=== PATIENT | male | born 1940 | race Caucasian/White ===

== ENCOUNTER 2016-08-03 09:21 | Inpatient (IN) | payer OTHER, MEDICARE ==
[~2016-08-03] VITALS: Ht 172.7 cm; Wt 90.7 kg
--- NOTE | 2016-08-03 09:28 | NUR ---
PT HAVING DIFFICULTY URINATING AND WAS TOLD BY HIS IF HE DIDN'T FEEL WELL TO GET TO THE HOSPITAL. PT STATES HE IS ON ABX FOR PACKING IN HIS NOSE PT STATES HE HAS NOT MOVED BOWELS SINCE MONDAY. PT HAS BPH
--- NOTE | 2016-08-03 09:36 | ED GI/GU/ABDOMINAL COMPLAINT ---
History of Present Illness General Chief Complaint: Abdominal Pain/Flank Pain Stated Complaint: ABD PAIN Source: patient, family Exam Limitations: no limitations Allergies Coded Allergies: No Known Allergies (08/03/16) Reconcile Medications Atorvastatin Calcium 10 MG TABLET 1 TAB PO 1700 HYPERLIPIDEMIA (Reported) Glipizide 10 MG TABLET 1 TAB PO BID DM (Reported) Metoprolol Tartrate 50 MG TABLET 1 TAB PO DAILY HEART (Reported) Pioglitazone HCl 15 MG TABLET 1 TAB PO DAILY DIABETES (Reported) Polyethylene Glycol 3350 (Miralax) 17 GRAM/DOSE POWDER 17 GM PO DAILY PRN CONSTIPATION Sennosides/Docusate Sodium (Senna Plus Tablet) 8.6 MG-50 MG TABLET 1 TAB PO BID PRN CONSTIPATION Tamsulosin HCl 0.4 MG CAP.ER.24H 1 CAP PO DAILY PROSTATE (Reported) Zolpidem Tartrate 10 MG TABLET 1 TAB PO QPMP PRN SLEEP (Reported) [Zyloprim] 200 MG PO DAILY GOUT Triage Note: PT HAVING DIFFICULTY URINATING AND WAS TOLD BY HIS DRTara IF HE DIDN'T FEEL WELL TO GET TO THE HOSPITAL. Triage Nurses Notes Reviewed? yes HPI: This patient is a 76-year-old male with a past medical history including CHF, benign prostatic hypertrophy, and diabetes who presented to the emergency department today sent in by his primary care physician for evaluation of multiple complaints. The patient reported that 3 or 4 weeks ago he had a cough productive of white sputum. His primary care physician got a chest x-ray which suggested congestive heart failure. He was started on Lasix. He had a nuclear stress test and an echocardiogram which were unremarkable. He reported that his lower extremity edema has significantly improved since that time and he no longer has to take the Lasix. He denied a cough currently. His resident doctor is Dr. Mejía. He also has a urologist who has been following his kidney function. He reported, "one of my kidney tests is low." He reported that he is having difficulty starting a stream when urinating. He denied any blood in the urine, burning, or urgency. He did report increased urinary frequency. The patient reported that last night he began having lower abdominal pain that starts on the left side of his lower abdomen and radiates across the right sided lower abdomen. He reported the pain comes and goes, gets up to a 6 out of 10, and feels a pressure. He feels that he is more bloated than normal. The patient denied any fevers, chills, chest pain, nausea, vomiting, or difficulty breathing. He reported intermittent lower back pain. Reported, "my doctor told me that if I wasn't feeling well and he is to come to the hospital to have blood work done and to possibly be admitted for my kidneys." (KENTRELL ASHLEY PA-C) Vital Signs & Intake/Output Vital Signs & Intake/Output Vital Signs Date Time Temp Pulse Resp B/P Pulse O2 O2 Flow FiO2 Ox Delivery Rate 08/05 09 80 130/70 08/05 09 80 130/70 08/05 0800 98.2 78 20 100/60 08/05 0700 98.2 78 20 100/60 93 Room Air 08/05 0600 98.2 78 20 100/60 08/04 2228 98.2 68 20 140/60 95 Room Air ED Intake and Output 08/05 0000 08/04 1200 Intake Total 2500 1600 Output Total 4400 4100 Balance -1900 -2500 Intake, IV 800 800 Intake, Oral 1700 800 Number 0 Bowel Movements Output, Urine 4400 4100 Past History Travel History Traveled to [place] past 21 day No Medical History Any Pertinent Medical History? see below for history Cardiovascular: CHF Renal: benign prost hyperplasia, RENAL FAILURE Endocrine: diabetes Surgical History Surgical History: non-contributory Psychosocial History What is your primary language Slovak Tobacco Use: Quit >30 days ago ETOH Use: occasional use Illicit Drug Use: denies illicit drug use Family History Hx Contributory? No (KENTRELL ASHLEY PA-C) Review of Systems Review of Systems Constitutional: Reports: no symptoms. EENTM: Reports: no symptoms. Respiratory: Reports: see HPI. Cardiovascular: Reports: see HPI. GI: Reports: see HPI. Genitourinary: Reports: see HPI. Musculoskeletal: Reports: see HPI. Skin: Reports: no symptoms. Neurological/Psychological: Reports: no symptoms. All Other Systems: Reviewed and Negative (KENTRELL ASHLEY PA-C) Physical Exam Physical Exam Gastrointestinal: normal bowel sounds, soft, MILD DISTENTION, NO ASCITES, DIFFUSELY TENDER TO DEEP PALPATION WITH NO REBOUND OR GUARDING. nEGATIVE Vicente SIGN. nEGATIVE rOVSING SIGN. nEGATIVE PSOAS SIGN. nO MASSES APPRECIATED Comments: Well-developed well-nourished person in no acute distress HEENT: Normal EENT exam, head normocephalic, moist mucous membranes Pupils equally round and reactive to light. Neck: Supple, no lymphadenopathy Back: Normal inspection. Normal gait Cardiovascular: Regular rate and rhythm with no murmurs, rubs, or gallops. No JVD or carotid bruits. Respiratory: Chest nontender. No respiratory distress. Breath sounds clear to auscultation bilaterally with no wheezes, rales, or rhonchi. No diminished breath sounds Extremity: Bilateral, nonpitting pedal edema. No calf tenderness to palpation. Normal and equal pulses. Capillary refill less than 2 seconds Neuro: Alert oriented x3, cranial nerves II through XII grossly intact. Skin: No appreciable rash on exposed skin, skin is warm and dry. Psych: Mood and affect is normal Core Measures ACS in differential dx? Yes Severe Sepsis Present: No Septic Shock Present: No (DION SHAFER,KENTRELL) Progress Differential Diagnosis: AAA, AMI, appendicitis, biliary colic, bowel obstruction , colon cancer, cholecystitis, diverticulitis, gastritis, hepatitis, ischemic bowel, inflamm bowel dis, pancreatitis, prostatitis, PUD/GERD, perforated viscous, pyelonephritis, ureterolithiasis, urinary retention, urethritis, UTI/ pyelo, ACUTE KIDNEY INJURY Diagnostic Imaging: Viewed by Me: CT Scan. Discussed w/RAD: CT Scan. Radiology Impression: PATIENT: MALCOM MONCADA PRESENT AGE: 76 PATIENT ACCOUNT NO: [id number] : 39 LOCATION: [facility] ORDERING PHYSICIAN: KENTRELL ASHLEY PA-C SERVICE DATE: 08/03/16 EXAM TYPE: CAT - CT ABD & PELVIS W/O IV CONTRAS EXAMINATION: CT ABDOMEN AND PELVIS WITHOUT CONTRAST CLINICAL INFORMATION: 76-year-old male presented with elevated amylase, lipase and abdominal pain. COMPARISON: None TECHNIQUE: Multidetector volumetric imaging was performed from the superior aspect of the liver through the pubic symphysis. Sagittal and coronal reformatted images were obtained on the technologist's workstation. DLP: 546.87 mGy-cm. FINDINGS: Evaluation is technically limited due to lack of intravenous contrast. LUNG BASES: The visualized lung bases are unremarkable. LIVER, GALLBLADDER, AND BILIARY TREE: The liver is normal in size, shape, and attenuation. No focal hepatic lesion or biliary ductal dilatation is present. The gallbladder is unremarkable with no evidence of radiopaque gallstones, gallbladder wall thickening, or obvious pericholecystic inflammatory changes. PANCREAS: Unremarkable. SPLEEN: Unremarkable. ADRENAL GLANDS: Unremarkable. KIDNEYS AND URETERS: Bilateral moderate to severe hydroureteronephrosis is present. There is a 2.2 cm cortical cyst present at mid lateral cortex of the right kidney. Nonspecific bilateral perinephric stranding is present. BLADDER: Markedly distended, seen extending above the level of the umbilicus without any definite intraluminal focal abnormality. GASTROINTESTINAL TRACT: The small and large bowel are unremarkable. The appendix is nonvisualized. ABDOMINAL WALL: No significant hernia is appreciated. LYMPH NODES: Normal. VASCULAR: Diffuse atherosclerotic changes are noted within the aorta and is branches. Mild distal abdominal aortic ectasia is present exiting approximately 2.9 x 2.7 cm. PELVIC VISCERA: The prostate is enlarged, measures approximately 5.6 x 5.0 cm. There is no free fluid and/or free air present. OSSEOUS STRUCTURES: Avascular necrosis is noted at the head of the right femur. Mild mid lumbar dextroscoliosis is noted. Significant facet joint arthritic changes are noted at lower lumbar spine. Moderate diffuse osteopenia is noted involving all the visualized bones. IMPRESSION: 1. Markedly distended urinary bladder with evidence of bilateral hydroureteronephrosis and mildly enlarged prostate. 2. No CT evidence of any acute pancreatitis, cholelithiasis or biliary obstruction is present. Evaluation is technically limited due to lack of IV contrast. 3. 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 Marked diffuse osteopenia. DICTATED BY: SHUKRI LONG MD DATE/ TIME DICTATED:08/03/161131 CUTTER HELPER:YISEL DATE/TIME TRANSCRIBED: 08/03/161131 CONFIDENTIAL, DO NOT COPY WITHOUT APPROPRIATE AUTHORIZATION. < Electronically signed in Other Vendor System> SIGNED BY: SHUKRI LONG MD 08/03/16 2184 Initial ED EKG: none Comments: 08/03/2016 9:57:11 PM: This is a patient of Dr. Muñoz. Will put out a page to him once his labs result. Last Cr was 4.5. Last GFR was 13. These results were drawn on August 01. (DION SHAFER,KENTRELL) Plan of Care: Orders Procedure Date/time Status Sanchez, Insertion/Removal/Asses 08/05 0819 Active Discharge Patient 08/05 UNK Active Nursing Misc 08/05 UNK Active Laboratory Tests 08/05/16 0650: Anion Gap 9, Estimated GFR 25 L, BUN/Creatinine Ratio 18.4 Departure Departure Disposition: STILL A PATIENT Condition: Stable Clinical Impression Primary Impression: Acute kidney injury Referrals: WANDA CHILDRESS,CHARLIE Santana (PCP/Family) Departure Forms: Customer Survey General Discharge Information Prescriptions: Current Visit Scripts Polyethylene Glycol 3350 (Miralax) 17 GM PO DAILY PRN CONSTIPATION #15 PAC [Zyloprim] 200 MG PO DAILY #30 TAB Sennosides/Docusate Sodium (Senna Plus Tablet) 1 TAB PO BID PRN CONSTIPATION #30 TAB Admission Note Spoke With: CHARLIE MUÑOZ MD Documentation of Exam: Documentation of any treatments & extenuating circumstances including Concerns Regarding Discharge (functional status, medication knowledge or non-compliance, living conditions, etc.) that warrant an admission rather than observation: [ This patient is a 76-year-old male with a past medical history including diabetes and benign prostatic hypertrophy and CHF who presented to the emergency department today for evaluation of abdominal pain and elevated functions. Creatinine today is 5.3. GFR is 11. This patient will be admitted for acute kidney injury to general medicine. He will need urology consultation, nephrology consultation, possible NPO status for elevated pancreatic enzymes, gastroenterology consultation, trend labs, and close monitoring. Premature discharge could prove medically harmful.] (KENTRELL ASHLEY PA-C) PA/CORRECTIONAL COUNSELOR Co-Sign Statement Statement: ED Attending supervision documentation- x I saw and evaluated the patient. I have also reviewed all the pertinent lab results and diagnostic results. I agree with the findings and the plan of care as documented in the PA's/CORRECTIONAL COUNSELOR's documentation. [] I have reviewed the ED Record and agree with the PA's/CORRECTIONAL COUNSELOR's documentation. [] Additions or exceptions (if any) to the PAs/CORRECTIONAL COUNSELOR's note and plan are summarized below: [] (NATIVIDAD ROSADO MD) as documented in the PA's/CORRECTIONAL COUNSELOR's documentation. [] I have reviewed the ED Record and agree with the PA's/CORRECTIONAL COUNSELOR's documentation. [] Additions or exceptions (if any) to the PAs/CORRECTIONAL COUNSELOR's note and plan are summarized below: [] (NATIVIDAD ROSADO MD)
--- NOTE | 2016-08-03 09:48 | NUR ---
EXAMINED BY MARY ASHLEY.
--- NOTE | 2016-08-03 10:15 | NUR ---
LAB DRAWN AND SENT.
--- NOTE | 2016-08-03 10:17 | NUR ---
FINGERSTICK GLUCOSE 219.
[2016-08-03 10:20] LABS: ABSOLUTE BASOPHIL COUNT 0 /CUMM (0.0-0.2); ABSOLUTE EOSINOPHIL COUNT 0.1 /CUMM (0.0-0.7); ABSOLUTE LYMPH COUNT 0.9 /CUMM (1.2-3.4); ABSOLUTE MONOCYTE COUNT 0.7 /CUMM (0.10-0.60); BASOPHIL % 0.2 % (0.0-2.0); EOSINOPHIL % 0.9 % (0-5); HEMATOCRIT 28.1 % (42-52); MEAN CORPUSCULAR HGB 21.8 PG (27.0-31.0); MEAN CORPUSCULAR VOLUME 68.3 FL (80.0-94.0); MEAN PLATELET VOLUME 8.9 FL (7.4-10.4); PLATELET COUNT 230 /CUMM (130-400); RBC DISTRIBUTION WIDTH 15.7 % (11.5-14.5); RED BLOOD CELL CT 4.11 /CUMM (4.70-6.10); WHITE BLOOD CELL COUNT 8.6 /CUMM (4.8-10.8)
[2016-08-03 10:22] LABS: GRANULOCYTE % 80.7 % (42.2-75.2)
[2016-08-03] MEDS ORDERED: LO-DOSE ASPIRIN81 MG PO (10:48)
[2016-08-03] MEDS ORDERED: AMOXICILLIN875 M1 PO (10:48)
[2016-08-03] MEDS ORDERED: POTASSIUM CHLO10 ME5 PO (10:49)
[2016-08-03] MEDS ORDERED: ALLOPURINOL300 M1 PO (10:49)
[2016-08-03] MEDS ORDERED: PIOGLITAZONE HC15 MG PO (10:49)
[2016-08-03] MEDS ORDERED: METOPROLOL TART50 M1 PO (10:49)
[2016-08-03] MEDS ORDERED: ZOLPIDEM TARTRA10 M1 PO (10:50)
[2016-08-03] MEDS ORDERED: TAMSULOSIN HCL0.4 M1 PO (10:50)
[2016-08-03] MEDS ORDERED: METFORMIN HCL1000 M1 PO (10:50)
[2016-08-03] MEDS ORDERED: GLIPIZIDE10 M2 PO (10:51)
[2016-08-03] MEDS ORDERED: ATORVASTATIN CA10 M1 PO (10:51)
--- NOTE | 2016-08-03 11:23 | NUR ---
TO CT SCAN.
--- NOTE | 2016-08-03 11:55 | CT SCAN REPORT ---
EXAMINATION: CT ABDOMEN AND PELVIS WITHOUT CONTRAST CLINICAL INFORMATION: 76-year-old male presented with elevated amylase, lipase and abdominal pain. COMPARISON: None TECHNIQUE: Multidetector volumetric imaging was performed from the superior aspect of the liver through the pubic symphysis. Sagittal and coronal reformatted images were obtained on the technologist's workstation. DLP: 546.87 mGy-cm. FINDINGS: Evaluation is technically limited due to lack of intravenous contrast. LUNG BASES: The visualized lung bases are unremarkable. LIVER, GALLBLADDER, AND BILIARY TREE: The liver is normal in size, shape, and attenuation. No focal hepatic lesion or biliary ductal dilatation is present. The gallbladder is unremarkable with no evidence of radiopaque gallstones, gallbladder wall thickening, or obvious pericholecystic inflammatory changes. PANCREAS: Unremarkable. SPLEEN: Unremarkable. ADRENAL GLANDS: Unremarkable. KIDNEYS AND URETERS: Bilateral moderate to severe hydroureteronephrosis is present. There is a 2.2 cm cortical cyst present at mid lateral cortex of the right kidney. Nonspecific bilateral perinephric stranding is present. BLADDER: Markedly distended, seen extending above the level of the umbilicus without any definite intraluminal focal abnormality. GASTROINTESTINAL TRACT: The small and large bowel are unremarkable. The appendix is nonvisualized. ABDOMINAL WALL: No significant hernia is appreciated. LYMPH NODES: Normal. VASCULAR: Diffuse atherosclerotic changes are noted within the aorta and is branches. Mild distal abdominal aortic ectasia is present exiting approximately 2.9 x 2.7 cm. PELVIC VISCERA: The prostate is enlarged, measures approximately 5.6 x 5.0 cm. There is no free fluid and/or free air present. OSSEOUS STRUCTURES: Avascular necrosis is noted at the head of the right femur. Mild mid lumbar dextroscoliosis is noted. Significant facet joint arthritic changes are noted at lower lumbar spine. Moderate diffuse osteopenia is noted involving all the visualized bones. IMPRESSION: 1. Markedly distended urinary bladder with evidence of bilateral hydroureteronephrosis and mildly enlarged prostate. 2. No CT evidence of any acute pancreatitis, cholelithiasis or biliary obstruction is present. Evaluation is technically limited due to lack of IV contrast. 3. 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 Marked diffuse osteopenia.
--- NOTE | 2016-08-03 13:16 | History & Physical ---
KWABENA JUNG MD 08/03/16 1312: General Information and HPI MD Statement: I have seen and personally examined MALCOM MONCADA and documented this H&P. The patient is a 76 year old M who presented with a patient stated chief complaint of [SENT BY HIS PCP FOR EVALUATION OF GENERALIZED ABD. PAIN AND WORSENING KIDNEY FUNCTION]. Source of Information: patient Exam Limitations: no limitations History of Present Illness: This is 76 year old male with past medical history of type 2 diabetes, CAD status post stenting in 1999, remote history of nephrolithiasis, BPH, presumed diastolic heart failure, osteoarthritis was sent in by his PCP for further evaluation of worsening generalized abdominal pain and kidney function on the lab. Patient had routine lab workup on 07/27/2016 which showed significantly worsening kidney function with creatinine of 3.5 (baseline cr. 1.0 in ). Patient had repeat lab yesterday which revealed progressively worsening kidney function with Cr. worsening to 4.5. Patient also started developing abdominal fullness and generalized abdominal pain since Monday night which over the period of time progress. Patient denies any urinary burning or dysuria and has unchanged urinary hesitancy and frequency which she attributes to his BPH. He also reports occasional chills but denies any fever. His last bowel movement was 2 days prior to admission. He denies any chest pain, shortness of breath, lightheadedness, nausea, vomiting, weakness. Allergies/Medications Allergies: Coded Allergies: No Known Allergies (08/03/16) Home Med list Allopurinol 300 MG TABLET 1 TAB PO DAILY GOUT (Reported) Amoxicillin 875 MG TABLET 1 TAB PO BID ANTIBIOTIC, INFECTION (Reported) Aspirin (Lo-Dose Aspirin EC) 81 MG TABLET.DR 2 TAB PO DAILY HEART HEALTH ( Reported) Atorvastatin Calcium 10 MG TABLET 1 TAB PO 1700 HYPERLIPIDEMIA (Reported) Glipizide 10 MG TABLET 1 TAB PO BID DM (Reported) Metformin HCl 1,000 MG TABLET 1 TAB PO BID DM (Reported) Metoprolol Tartrate 50 MG TABLET 1 TAB PO DAILY HEART (Reported) Pioglitazone HCl 15 MG TABLET 1 TAB PO DAILY DIABETES (Reported) Potassium Chloride 10 MEQ TAB.ER.PRT 1 TAB PO DAILY SUPPLEMENT (Reported) Tamsulosin HCl 0.4 MG CAP.ER.24H 1 CAP PO DAILY PROSTATE (Reported) Zolpidem Tartrate 10 MG TABLET 1 TAB PO QPMP PRN SLEEP (Reported) Compliance With Home Meds: FAIR Past History Travel History Traveled to [place] past 21 day No Medical History Cardiovascular: CAD, CHF Renal: benign prost hyperplasia, nephrolithiasis, RENAL FAILURE Endocrine: diabetes Surgical History Surgical History: non-contributory Past Family/Social History Family History Relations & Conditions if any FATHER FH: CAD (coronary artery disease) Psychosocial History ETOH Use: occasional use Illicit Drug Use: denies illicit drug use Functional Ability ADLs Independent: dressing, eating, toileting, bathing. Ambulation: independent IADLs Independent: shopping, housework, finances, food prep, telephone, transportation , medication admin. Review of Systems Review of Systems Constitutional: Reports: chills. Denies: fever, weakness. EENTM: Denies: visual changes. Cardiovascular: Denies: chest pain, edema, palpitations. Respiratory: Denies: cough, short of breath, wheezing. GI: Reports: abdominal pain, constipation. Denies: diarrhea, nausea, vomiting. Genitourinary: Reports: frequency, hesitation. Denies: dysuria. Musculoskeletal: Denies: back pain. Skin: Denies: rash. Neurological/Psychological: Denies: confusion. Exam & Diagnostic Data Last 24 Hrs of Vital Signs/I&O Vital Signs Date Time Temp Pulse Resp B/P Pulse O2 O2 Flow FiO2 Ox Delivery Rate 08/03 1345 97.9 80 18 173/89 97 08/03 1344 97.8 74 20 173/79 08/03 1344 97.8 74 20 173/79 08/03 1139 97.8 68 18 181/83 97 Room Air 08/03 0931 96.6 74 18 163/89 98 Room Air Intake & Output 08/03 1600 08/03 0800 08/03 0000 Intake Total 10 Output Total Balance 10 Intake, IV 10 Intake, Oral 0 Patient 185 lb Weight Physical Exam General Appearance Alert, Oriented X3, Cooperative, No Acute Distress Skin No Rashes HEENT Atraumatic, PERRLA, EOMI, Mucous Membr. moist/pink Neck Supple, No JVD Lymphatic Cervical nl Cardiovascular Regular Rate, Normal S1, Normal S2, No Murmurs Lungs Clear to Auscultation, Normal Air Movement Abdomen Normal Bowel Sounds, Soft, No Tenderness Neurological Normal Speech, Normal Tone, Sensation Intact Extremities 1-2 + pitting pedal edema B/L Vascular Normal Pulses, Pulses Symmetrical Last 24 Hrs of Labs/Serg: Laboratory Tests 08/03/16 1025: Lactic Acid 0.9 08/03/16 1011: Anion Gap 11, Estimated GFR 11 L, BUN/Creatinine Ratio 17.4, Glucose 212 H, Calcium 9.6, Total Bilirubin 0.9, Direct Bilirubin 0.7 H, AST 20, ALT 22, Alkaline Phosphatase 51, Wdp-J-Ossbbwzgnpd Pept 1380 H, Total Protein 6.7, Albumin 3.7, Globulin 3.0, Albumin/Globulin Ratio 1.2, Amylase 115 H, Lipase 718 H, CBC w Diff NO MAN DIFF REQ, RBC 4.11 L, MCV 68.3 L, MCH 21.8 L, RDW 15.7 H, MPV 8.9, Gran % 80.7 H, Lymphocytes % 10.7 L, Monocytes % 7.5, Eosinophils % 0.9, Basophils % 0.2, Absolute Granulocytes 7.0 H, Absolute Lymphocytes 0.9 L, Absolute Monocytes 0.7 H, Absolute Eosinophils 0.1, Absolute Basophils 0, PUBS MCHC 32.0 L 08/03/16 1003: Urine Color YEL, Urine Clarity CLEAR, Urine pH 6.0, Ur Specific Bim 1.010, Urine Protein NEG, Urine Ketones NEG, Urine Nitrite NEG, Urine Bilirubin NEG, Urine Urobilinogen 0.2, Ur Leukocyte Esterase SMALL H, Ur Microscopic SEDIMENT EXAMINED, Urine RBC 1-3, Urine WBC 5-10 H, Urine Hemoglobin TRACE-INTACT H, Urine Glucose NEG 08/03/16 1003: Ref Lab Test Result Pending, Ur Random Creatinine 61.9, Ur Random Sodium 37, Ur Random Potassium 25.9, Fraction Sodium Excret 2.3 H Microbiology 08/03 1424 URINE ROUT: Urine Culture - ORD 08/03 1003 URINE ROUT: Urine Culture - RECD Diagnostic Data Other Results CT abdomen and pelvis without IV contrast: 1. Markedly distended urinary bladder with evidence of bilateral hydroureteronephrosis and mildly enlarged prostate. 2. No CT evidence of any acute pancreatitis, cholelithiasis or biliary obstruction is present. Evaluation is technically limited due to lack of IV contrast. 3. 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 Marked diffuse osteopenia. Assessment/Plan Assessment: This is 76 year old male with past medical history of type 2 diabetes, CAD status post stenting in 1999, remote history of nephrolithiasis, BPH, presumed diastolic heart failure, osteoarthritis was sent in by his PCP for further evaluation of worsening generalized abdominal pain and kidney function on the lab. Patient noted to have acute worsening of kidney function from creatinine being 1 in February [address] abdomen pelvis revealed markedly distended urinary bladder with evidence of bilateral hydroureteronephrosis and mildly enlarged prostate without any evidence of acute pancreatitis/ cholelithiasis or biliary obstruction. 1. Acute kidney injury - Likely secondary to urinary obstruction due to enlarged prostate - Stat Sanchez placement in ER , received 1600 cc urine output, watch for post- obstructive diuresis - Strict SALENA's - Urology consult - aggressive IV hydration - No urologic uintervention as per Urology Dr. Parnell required now - UA noted with 5-10 WBC and small leukocyte esterase no evidence of urinary burning/pain or leukocytosis. Follow-up urine culture. Watched off antibiotics - CT scan revealed markedly distended bladder with evidence of bilateral hydronephrosis and mildly enlarged prostate - will monitor kidney function and if needed will involve nephrology 2. Mildly elevated lipase - Unknown etiology - Patient denies any binge alcohol use, and CT scan did not reveal any evidence of gallstone disease or obstruction - Monitor lipase, LFT - as per patient's daughter, he drinks more than what he is reporting, will do CIWA 3. CAD status post stenting - Continue aspirin, beta omid and statin 4. BPH - Continue Flomax 5. Type 2 diabetes - Hold oral hypoglycemic agent - Start Novolog sliding scale - Accu-Cheks 6. DVT prophylaxis - Subcutaneous heparin 7. Full code case discussed with Dr. moore and Dr. Parnell over phone. As Ranked By This Provider Problem List: 1. Acute kidney injury 2. CAD (coronary artery disease) 3. HTN (hypertension) Core Measures/Miscellaneous Acute Coronary Syndrome ACS Diagnosis: No Cerebrovascular Accident CVA/TIA Diagnosis: No Congestive Heart Failure CHF Diagnosis: No Venous Thromboembolism VTE Risk Factors: Age > 40 No [facility] VTE prophylaxis d/t: No contraindications No VTE Pharm Prophylaxis d/t: No contraindications VTE Diagnosis: No VTE Type: NONE VTE Confirmed by (Test): NONE Severe Sepsis Severe Sepsis Present: No Septic Shock Septic Shock Present: No Miscellaneous Documentation Attending Case Discussed With: Dr. Moore Primary Care Physician: FARENS MD,ADONIS. Patient sees these Specialists Dr. Mejía cardiology Dr. Mae ENT Dr. Rosa urology Level of Patient Care: General Medicine Consults Needed: Consulting Specialty: Urology Consulting Physician: Dr. Parnell Reason for Consult: oobstructive uropathy Resident Review Statement Resident Statement: examined this patient, discussed with engineering intern, agreed with engineering intern, discussed with family, reviewed EMR data (avail), reviewed images, amended to note Other Findings: see HPI MEL CHILDRESS,[facility] 08/04/16 0848: Attending MD Review Statement Attending Statement Attending MD Statement: examined this patient, discuss w/resident/PA/UPHOLSTERER ASSEMBLY LINE, agreed w/resident/PA/UPHOLSTERER ASSEMBLY LINE, discussed with family, discussed with nursing
--- NOTE | 2016-08-03 13:27 | NUR ---
PT HAS BED ASSIGNMENT 230-2. RN NOTIFIED.
--- NOTE | 2016-08-03 13:44 | NUR ---
PT MEDICATED DOCUMENTED IN [facility]
--- NOTE | 2016-08-03 14:25 | NUR ---
REPORT TO FLOOR (JEFFREY BALL).
--- NOTE | 2016-08-03 15:06 | NUR ---
WATSON CATHETER INSERTED, DRAINED 1600 ML CLEAR YELLOW URINE.
--- NOTE | 2016-08-03 16:17 | NUR ---
ADMISSION NOTE- PT ARRIVED TO FLOOR AT THIS TIME. A/O X 3, ON RA, INDEP. STATES HEADACHE PAIN REQUESTING TYLENOL. SKIN INTACT, +1 EDEMA TO BLE. REFUSING ALPS AND HEPARIN. ABD SOFTLY DISTENDED. LBM 07/31 PER PT. +BS, +FLATUS. WATSON DRAINING CLEAR YELLOW URINE, 400 CC IN BAG AT THIS TIME. ORIENTED TO ROOM AND USE OF CALL [facility]. APPROACHED OUTSIDE OF ROOM BY DAUGHTER STATING THAT "HE IS AN ALCOHOLIC. I'D BE SURPRISED IF HE ONLY DRINKS ON THE WEEKENDS LIKE HE SAYS. WE ALL WOULD BE SURPRISED. IN FACT, HE ADMITTED TO THE DOCTOR THAT HE DRINKS EVERY DAY". CALL PLACED TO KWABENA JUNG AT THIS TIME TO MAKE AWARE. CIWA SCALE IN PLACE. PER KWABENA PT OK TO EAT AND DRINK. CYSTO PROCEDURE ON HOLD. ICE CHIPS AND WATER PROVIDED TO PT. WILL CONTINUE TO MONITOR.
[2016-08-03 16:21] VITALS: BP 154/60
--- NOTE | 2016-08-03 17:38 | NUR ---
PRINT DEVELOPER AUTOMATIC MADE AWARE THAT PT IS REFUSING ALPS/ HEPARIN SC. ALSO, PT REFUSED ORDERED MIRALAX AT THIS TIME. "ILL TAKE IT IN THE MORNING, I WANT IT TO TAKE ITS NATURAL COURSE". WILL CONTINUE TO MONITOR.
[2016-08-03 21:54] VITALS: BP 154/70
[2016-08-04] VITALS: BP 154/70
[2016-08-04 06:00] VITALS: BP 160/70
[2016-08-04 07:19] VITALS: BP 160/70
[2016-08-04 08:00] VITALS: BP 160/70
[2016-08-04 08:01] LABS: ABSOLUTE BASOPHIL COUNT 0 /CUMM (0.0-0.2); ABSOLUTE EOSINOPHIL COUNT 0.2 /CUMM (0.0-0.7); ABSOLUTE GRANULOCYTE CT 3.9 /CUMM (1.4-6.5); ABSOLUTE LYMPH COUNT 1.5 /CUMM (1.2-3.4); ABSOLUTE MONOCYTE COUNT 0.6 /CUMM (0.10-0.60); BASOPHIL % 0.7 % (0.0-2.0); EOSINOPHIL % 3.5 % (0-5); GRANULOCYTE % 62.2 % (42.2-75.2); HEMATOCRIT 27.2 % (42-52); MEAN CORPUSCULAR HGB 21.7 PG (27.0-31.0); MEAN CORPUSCULAR HGB CONC 31.8 G/DL (33.0-37.0); MEAN CORPUSCULAR VOLUME 68.4 FL (80.0-94.0); MEAN PLATELET VOLUME 9.3 FL (7.4-10.4); PLATELET COUNT 213 /CUMM (130-400); RBC DISTRIBUTION WIDTH 15.7 % (11.5-14.5); RED BLOOD CELL CT 3.98 /CUMM (4.70-6.10); WHITE BLOOD CELL COUNT 6.2 /CUMM (4.8-10.8)
--- NOTE | 2016-08-04 08:46 | Admission Certification ---
Admission Certification Certification Statement - As attending physician, I certify that at the time of - admission, based on clinical presentation, severity of - symptoms, need for further diagnostic testing and - therapeutic interventions, and risk of adverse outcomes - without in-hospital treatment, in my clinical assessment, - this patient requires an acute hospital stay for a minimum - of two nights or longer. I have also considered psychsocial - factors such as support system, advanced age, financial - issues, cognitive issues, and failed out-patient treatments, - past re-admission history, safety of patient, and lack of - compliance as applicable. Specific rationale supporting this admission is: Acute kidney injury, renal failure
--- NOTE | 2016-08-04 08:48 | PN- Att Addend ---
Attending Addendum Attending Brief Note Patient reports improved symptoms General Appearance: Alert, No Acute Distress Skin: Grossly normal HEENT: PEERLA Neck: Supple, No JVD Cardiovascular: Regular Rate, Normal S1, Normal S2, No Murmurs Lungs: Clear to Auscultation, Normal Air Movement Abdomen: Normal Bowel Sounds, Soft, No Tenderness Neurological: Normal Speech, Strength at 5/5 X4 Ext, Cranial Nerves 3-12 NL, Reflexes 2+ Extremities: No Clubbing, No Cyanosis, No Edema Vascular: Normal Pulses Assessment X line 76-year-old with history of diabetes, coronary artery disease, BPH presenting with worsening kidney function and abdominal discomfort. CAT scan suggested significant bladder distention and bilateral hydronephrosis. Sanchez was placed and he is tired used about 8 L in 24 hours and his kidney function is improving. Prior to admission he had a nasal packing for epistaxis that has resolved and he is continued on the antibiotic. Plan Continue Augmentin Continue IV hydration Monitor kidney function daily Continue other home medications Alps for DVT prophylaxis Current Medications Sig/Manohar Start time Last Medication Dose Route Stop Time Status Admin Acetaminophen 650 MG Q6P PRN 08/03 1615 AC 08/03 PO 1614 Allopurinol 200 MG DAILY 08/04 1000 AC PO Amoxicillin/ 500 MG Q12 08/03 1530 AC 08/03 Clavulanate Potassium PO 2049 Aspirin Buffered 162 MG DAILY 08/04 1000 CAN PO Atorvastatin Calcium 10 MG 1700 08/03 1700 AC PO Dextrose/Sodium 1,000 ML Q20H 08/03 1400 DC 08/03 Chloride IV 1505 Heparin Sodium 5,000 UNIT Q8 08/03 1604 DC (Porcine) SC Heparin Sodium 5,000 UNIT Q8 08/03 1400 CAN (Porcine) SC Insulin Aspart 0 TIDAC 08/03 1700 AC 08/03 SC 1713 Insulin Human Regular 0 Q6 08/03 1402 DC SC Metoprolol Tartrate 0 .STK-MED ONE 08/03 1340 DC PO Metoprolol Tartrate 50 MG DAILY 08/03 1306 AC 08/03 PO 1344 Oxycodone/ 1 TAB Q6P PRN 08/03 1615 AC Acetaminophen PO Polyethylene Glycol 17 GM DAILY 08/03 1626 AC PO Senna/Docusate Sodium 1 TAB BID 08/03 2200 AC 08/03 PO 2049 Sodium Chloride 1,000 ML Q6H 08/03 1545 AC 08/03 IV 0 Tamsulosin HCl 0.4 MG DAILY 08/03 1306 AC 08/03 PO 1344 Zolpidem Tartrate 10 MG AT BEDTIME NEED.. 08/03 1315 08/03 PO 2253 Laboratory Tests 08/04 08/03 08/03 0645 1850 1246 Chemistry Sodium (137 - 145 mmol/L) 145 141 Potassium (3.5 - 5.1 mmol/L) 3.8 4.7 Chloride (98 - 107 mmol/L) 106 102 Carbon Dioxide (22 - 30 mmol/L) 23 25 Anion Gap (5 - 16) 17 H 13 BUN (9 - 20 mg/dL) 70 H 86 H Creatinine (0.7 - 1.2 mg/dL) 3.8 H 4.7 H Estimated GFR (>60 ml/min) 16 L 12 L BUN/Creatinine Ratio (7 - 25 %) 18.4 18.3 Lactic Acid Cancelled Hematology CBC w Diff NO MAN DIFF REQ WBC (4.8 - 10.8 /CUMM) 6.2 RBC (4.70 - 6.10 /CUMM) 3.98 L Hgb (14.0 - 18.0 G/DL) 8.6 L Hct (42 - 52 %) 27.2 L MCV (80.0 - 94.0 FL) 68.4 L MCH (27.0 - 31.0 PG) 21.7 L RDW (11.5 - 14.5 %) 15.7 H Plt Count (130 - 400 /CUMM) 213 MPV (7.4 - 10.4 FL) 9.3 Gran % (42.2 - 75.2 %) 62.2 Lymphocytes % (20.5 - 51.1 %) 23.4 Monocytes % (1.7 - 9.3 %) 10.2 H Eosinophils % (0 - 5 %) 3.5 Basophils % (0.0 - 2.0 %) 0.7 Absolute Granulocytes (1.4 - 6.5 /CUMM) 3.9 Absolute Lymphocytes (1.2 - 3.4 /CUMM) 1.5 Absolute Monocytes (0.10 - 0.60 /CUMM) 0.6 Absolute Eosinophils (0.0 - 0.7 /CUMM) 0.2 Absolute Basophils (0.0 - 0.2 /CUMM) 0 PUBS MCHC (33.0 - 37.0 G/DL) 31.8 L 08/03 08/03 1025 1011 Chemistry Sodium (137 - 145 mmol/L) 137 Potassium (3.5 - 5.1 mmol/L) 4.7 Chloride (98 - 107 mmol/L) 102 Carbon Dioxide (22 - 30 mmol/L) 24 Anion Gap (5 - 16) 11 BUN (9 - 20 mg/dL) 92 H Creatinine (0.7 - 1.2 mg/dL) 5.3 *H Estimated GFR (>60 ml/min) 11 L BUN/Creatinine Ratio (7 - 25 %) 17.4 Glucose (65 - 99 mg/dL) 212 H Lactic Acid (0.7 - 2.1 mmol/L) 0.9 Calcium (8.4 - 10.2 mg/dL) 9.6 Total Bilirubin (0.2 - 1.3 mg/dL) 0.9 Direct Bilirubin (< 0.4 mg/dL) 0.7 H AST (17 - 59 U/L) 20 ALT (21 - 72 U/L) 22 Alkaline Phosphatase (< 127 U/L) 51 Urd-H-Eyknrfybvls Pept (<125 pg/mL) 1380 H Total Protein (6.3 - 8.2 g/dL) 6.7 Albumin (3.5 - 5.0 g/dL) 3.7 Globulin (1.9 - 4.2 gm/dL) 3.0 Albumin/Globulin Ratio (1.1 - 2.2 %) 1.2 Amylase (30 - 110 U/L) 115 H Lipase (23 - 300 U/L) 718 H Hematology CBC w Diff NO MAN DIFF REQ WBC (4.8 - 10.8 /CUMM) 8.6 RBC (4.70 - 6.10 /CUMM) 4.11 L Hgb (14.0 - 18.0 G/DL) 9.0 L Hct (42 - 52 %) 28.1 L MCV (80.0 - 94.0 FL) 68.3 L MCH (27.0 - 31.0 PG) 21.8 L RDW (11.5 - 14.5 %) 15.7 H Plt Count (130 - 400 /CUMM) 230 MPV (7.4 - 10.4 FL) 8.9 Gran % (42.2 - 75.2 %) 80.7 H Lymphocytes % (20.5 - 51.1 %) 10.7 L Monocytes % (1.7 - 9.3 %) 7.5 Eosinophils % (0 - 5 %) 0.9 Basophils % (0.0 - 2.0 %) 0.2 Absolute Granulocytes (1.4 - 6.5 /CUMM) 7.0 H Absolute Lymphocytes (1.2 - 3.4 /CUMM) 0.9 L Absolute Monocytes (0.10 - 0.60 /CUMM) 0.7 H Absolute Eosinophils (0.0 - 0.7 /CUMM) 0.1 Absolute Basophils (0.0 - 0.2 /CUMM) 0 PUBS MCHC (33.0 - 37.0 G/DL) 32.0 L 08/03 08/03 1003 1003 Miscellaneous Ref Lab Test Result Pending Urines Urine Color (YEL,AMB,STR) YEL Urine Clarity (CLEAR) CLEAR Urine pH (5.0 - 8.0) 6.0 Ur Specific [employer] (1.001 - 1.035) 1.010 Urine Protein (NEG,<30 MG/DL) NEG Urine Ketones (NEG) NEG Urine Nitrite (NEG) NEG Urine Bilirubin (NEG) NEG Urine Urobilinogen (0.1 - 1.0 EU/dl) 0.2 Ur Leukocyte Esterase (NEG) SMALL H Ur Microscopic SEDIMENT EXAMINED Urine RBC (0 - 5 /HPF) 1-3 Urine WBC (0 - 2 /HPF) 5-10 H Urine Hemoglobin (NEG) TRACE-INTACT H Ur Random Creatinine (mg/dL) 61.9 Ur Random Sodium (30 - 90 mmol/L) 37 Ur Random Potassium (mmol/L) 25.9 Fraction Sodium Excret (<1% %) 2.3 H Urine Glucose (N MG/DL) NEG Vital Signs Date Time Temp Pulse Resp B/P Pulse O2 O2 Flow FiO2 Ox Delivery Rate 08/04 0719 98.7 74 20 160/70 94 Room Air 08/04 0000 97.6 71 20 154/70 08/03 2154 97.6 71 20 154/70 96 Room Air 08/03 1621 97.5 73 20 154/60 95 Room Air 08/03 1459 84 18 174/84 08/03 1345 97.9 80 18 173/89 97 08/03 1344 97.8 74 20 173/79 08/03 1344 97.8 74 20 173/79 08/03 1139 97.8 68 18 181/83 97 Room Air 08/03 0931 96.6 74 18 163/89 98 Room Air
--- NOTE | 2016-08-04 09:15 | PN- Housestaff ---
Subjective Follow-up For: Acute kidney injury secondary to obstructive uropathy Complaints: unable to sleep well Subjective: Patient is comfortably sitting in bed. Denies any fever, chills, abdominal pain , nausea, vomiting or dizziness. He feels significantly better after getting Mtz catheter and relieving his urinary obstruction. He is requesting to get his nasal packing removed from his left nostril which was placed by ENT physician 3 days prior to admission for epistaxis. Review of Systems Constitutional: Reports: see HPI. Objective Last 24 Hrs of Vital Signs/I&O Vital Signs Date Time Temp Pulse Resp B/P Pulse O2 O2 Flow FiO2 Ox Delivery Rate 08/04 0719 98.7 74 20 160/70 94 Room Air 08/04 0000 97.6 71 20 154/70 08/03 2154 97.6 71 20 154/70 96 Room Air 08/03 1621 97.5 73 20 154/60 95 Room Air 08/03 1459 84 18 174/84 08/03 1345 97.9 80 18 173/89 97 08/03 1344 97.8 74 20 173/79 08/03 1344 97.8 74 20 173/79 08/03 1139 97.8 68 18 181/83 97 Room Air 08/03 0931 96.6 74 18 163/89 98 Room Air Intake & Output 08/04 1600 08/04 0800 08/04 0000 Intake Total Output Total 4100 2500 Balance -4100 -2500 Output, Urine 4100 2500 Physical Exam General Appearance: Alert, Oriented X3, Cooperative, No Acute Distress Skin: No Rashes HEENT: Atraumatic, PERRLA, EOMI, Mucous Membr. moist/pink Neck: Supple, No JVD Lymphatic: Cervical nl Cardiovascular: Normal S1, Normal S2, No Murmurs Lungs: Clear to Auscultation, Normal Air Movement Abdomen: Normal Bowel Sounds, Soft, No Tenderness Neurological: Normal Speech, Normal Tone, Sensation Intact Extremities: No Edema, Normal Pulses Vascular: Pulses Symmetrical Current Medications: Current Medications Sig/Manohar Start time Last Medication Dose Route Stop Time Status Admin Acetaminophen 650 MG Q6P PRN 08/03 1615 AC 08/03 PO 1614 Allopurinol 200 MG DAILY 08/04 1000 AC PO Amoxicillin/ 500 MG Q12 08/03 1530 AC 08/03 Clavulanate Potassium PO 204 Aspirin Buffered 162 MG DAILY 08/04 1000 CAN PO Atorvastatin Calcium 10 MG 1700 08/03 1700 AC PO Dextrose/Sodium 1,000 ML Q20H 08/03 1400 DC 08/03 Chloride IV 1505 Heparin Sodium 5,000 UNIT Q8 08/03 1604 DC (Porcine) SC Heparin Sodium 5,000 UNIT Q8 08/03 1400 CAN (Porcine) SC Insulin Aspart 0 TIDAC 08/03 1700 AC 08/03 SC 1713 Insulin Human Regular 0 Q6 08/03 1402 DC SC Metoprolol Tartrate 0 .STK-MED ONE 08/03 1340 DC PO Metoprolol Tartrate 50 MG DAILY 08/03 1306 AC 08/03 PO 1344 Oxycodone/ 1 TAB Q6P PRN 08/03 1615 AC Acetaminophen PO Polyethylene Glycol 17 GM DAILY 08/03 1626 AC PO Senna/Docusate Sodium 1 TAB BID 08/03 2200 AC 08/03 PO 2049 Sodium Chloride 1,000 ML Q6H 08/03 1545 AC 08/03 IV 2050 Tamsulosin HCl 0.4 MG DAILY 08/03 1306 AC 08/03 PO 1344 Zolpidem Tartrate 10 MG AT BEDTIME NEED.. 08/03 1315 AC 08/03 PO 2253 Last 24 Hrs of Lab/Serg Results Last 24 Hrs of Labs/Mics: Laboratory Tests 08/04/16 0645: Anion Gap 17 H, Estimated GFR 16 L, BUN/Creatinine Ratio 18.4, CBC w Diff NO MAN DIFF REQ, RBC 3.98 L, MCV 68.4 L, MCH 21.7 L, RDW 15.7 H, MPV 9.3, Gran % 62.2, Lymphocytes % 23.4, Monocytes % 10.2 H, Eosinophils % 3.5, Basophils % 0.7, Absolute Granulocytes 3.9, Absolute Lymphocytes 1.5, Absolute Monocytes 0.6 , Absolute Eosinophils 0.2, Absolute Basophils 0, PUBS MCHC 31.8 L 08/03/16 1850: Anion Gap 13, Estimated GFR 12 L, BUN/Creatinine Ratio 18.3 08/03/16 1246: Lactic Acid Cancelled 08/03/16 1025: Lactic Acid 0.9 08/03/16 1011: Anion Gap 11, Estimated GFR 11 L, BUN/Creatinine Ratio 17.4, Glucose 212 H, Calcium 9.6, Total Bilirubin 0.9, Direct Bilirubin 0.7 H, AST 20, ALT 22, Alkaline Phosphatase 51, Pfh-W-Rzwchguhndn Pept 1380 H, Total Protein 6.7, Albumin 3.7, Globulin 3.0, Albumin/Globulin Ratio 1.2, Amylase 115 H, Lipase 718 H, CBC w Diff NO MAN DIFF REQ, RBC 4.11 L, MCV 68.3 L, MCH 21.8 L, RDW 15.7 H, MPV 8.9, Gran % 80.7 H, Lymphocytes % 10.7 L, Monocytes % 7.5, Eosinophils % 0.9, Basophils % 0.2, Absolute Granulocytes 7.0 H, Absolute Lymphocytes 0.9 L, Absolute Monocytes 0.7 H, Absolute Eosinophils 0.1, Absolute Basophils 0, PUBS MCHC 32.0 L 08/03/16 1003: Urine Color YEL, Urine Clarity CLEAR, Urine pH 6.0, Ur Specific [place] 1.010, Urine Protein NEG, Urine Ketones NEG, Urine Nitrite NEG, Urine Bilirubin NEG, Urine Urobilinogen 0.2, Ur Leukocyte Esterase SMALL H, Ur Microscopic SEDIMENT EXAMINED, Urine RBC 1-3, Urine WBC 5-10 H, Urine Hemoglobin TRACE-INTACT H, Urine Glucose NEG 08/03/16 1003: Ref Lab Test Result Pending, Ur Random Creatinine 61.9, Ur Random Sodium 37, Ur Random Potassium 25.9, Fraction Sodium Excret 2.3 H Microbiology 08/03 1534 URINE ROUT: Urine Culture - RECD 08/03 1003 URINE ROUT: Urine Culture - RECD Orders Fingersticks (last 24 hrs): [id number] EKG Findings: NSR, rate 80, borderline first-degree AV block, left axis deviation, no acute ST -T changes Lines/Diet/Fluids Fluids/Infusions: normal saline 100 mL per hour Catheters/Tubes: mtz Mtz Still Needed? Yes Assessment/Plan Assessment: This is 76 year old male with past medical history of type 2 diabetes, CAD status post stenting in 1999, remote history of nephrolithiasis, BPH, presumed diastolic heart failure, osteoarthritis was sent in by his PCP for further evaluation of worsening generalized abdominal pain and kidney function on the lab. Patient noted to have acute worsening of kidney function from creatinine being 1 in February [address] abdomen pelvis revealed markedly distended urinary bladder with evidence of bilateral hydroureteronephrosis and mildly enlarged prostate without any evidence of acute pancreatitis/ cholelithiasis or biliary obstruction. Catheter was placed in ER and 1600 mL of urine noted. Patient had total of 8 L urine output in last 24 hours 1. Acute kidney injury secondary to obstructive uropathy due to an enlarged prostate - Improving - Continue Mtz, noted hematuria which was expected after a significant bladder distention which was decompressed with Mtz - Strict SALENA's - As per urology patient needs Mtz on discharge and has to follow-up with his primary urologist Dr. Avila as outpatient - Continue IV hydration, change to half normal saline at 100 mL per hour - No urologic uintervention as per Urology Dr. Parnell required now - UA noted with 5-10 WBC and small leukocyte esterase no evidence of urinary burning/pain or leukocytosis. Follow-up urine culture. Watched off antibiotics - CT scan revealed markedly distended bladder with evidence of bilateral hydronephrosis and mildly enlarged prostate -Kidney function is significantly improving with creatinine of 3.8 today, will repeat BUN and creatinine in afternoon - Expected post obstructive diuresis, will maintain fluid status 2. Mildly elevated lipase - Unknown etiology, will repeat LFT tomorrow - Patient denies any binge alcohol use, and CT scan did not reveal any evidence of gallstone disease or obstruction - as per patient's daughter, he drinks more than what he is reporting, will do CIWA, so far CIWA has been 0 3. CAD status post stenting - Continue beta omid and statin 4. Recent episode of epistaxis - Patient was evaluated by his ENT Dr. Mae and anterior nasal packing was placed after cauterizing to bleeding vessel - Nasal packing removed today without any significant bleeding - Will avoid aspirin and anticoagulation for now due to recent episode of epistaxis and hematuria 4. BPH - Continue Flomax 5. Type 2 diabetes - Hold oral hypoglycemic agent - Start Novolog sliding scale - Accu-Cheks and noted This is 76 year old male with past medical history of type 2 diabetes, CAD status post stenting in 1999, remote history of nephrolithiasis, BPH, presumed diastolic heart failure, osteoarthritis was sent in by his PCP for further evaluation of worsening generalized abdominal pain and kidney function on the lab. Patient noted to have acute worsening of kidney function from creatinine being 1 in February [address] abdomen pelvis revealed markedly distended urinary bladder with evidence of bilateral hydroureteronephrosis and mildly enlarged prostate without any evidence of acute pancreatitis/cholelithiasis or biliary obstruction. 1. Acute kidney injury - Likely secondary to urinary obstruction due to enlarged prostate - Stat Mtz placement in ER , received 1600 cc urine output, watch for post- obstructive diuresis - Strict SALENA's - Urology consult - aggressive IV hydration - No urologic uintervention as per Urology Dr. Parnell required now - UA noted with 5-10 WBC and small leukocyte esterase no evidence of urinary burning/pain or leukocytosis. Follow-up urine culture. Watched off antibiotics - CT scan revealed markedly distended bladder with evidence of bilateral hydronephrosis and mildly enlarged prostate - will monitor kidney function and if needed will involve nephrology 2. Mildly elevated lipase - Unknown etiology - Patient denies any binge alcohol use, and CT scan did not reveal any evidence of gallstone disease or obstruction - Monitor lipase, LFT - as per patient's daughter, he drinks more than what he is reporting, will do CIWA 3. CAD status post stenting - Continue aspirin, beta omid and statin 4. BPH - Continue Flomax 5. Type 2 diabetes - Hold oral hypoglycemic agent - Start Novolog sliding scale - Accu-Cheks 6. DVT prophylaxis - Subcutaneous heparin 7. Full code case discussed with Dr. moore and Dr. Parnell over phone. That the This is 76 year old male with past medical history of type 2 diabetes, CAD status post stenting in 1999, remote history of nephrolithiasis, BPH, presumed diastolic heart failure, osteoarthritis was sent in by his PCP for further evaluation of worsening generalized abdominal pain and kidney function on the lab. Patient noted to have acute worsening of kidney function from creatinine being 1 in February [address] abdomen pelvis revealed markedly distended urinary bladder with evidence of bilateral hydroureteronephrosis and mildly enlarged prostate without any evidence of acute pancreatitis/cholelithiasis or biliary obstruction. 1. Acute kidney injury - Likely secondary to urinary obstruction due to enlarged prostate - Stat Mtz placement in ER , received 1600 cc urine output, watch for post- obstructive diuresis - Strict SALENA's - Urology consult - aggressive IV hydration - No urologic uintervention as per Urology Dr. Parnell required now - UA noted with 5-10 WBC and small leukocyte esterase no evidence of urinary burning/pain or leukocytosis. Follow-up urine culture. Watched off antibiotics - CT scan revealed markedly distended bladder with evidence of bilateral hydronephrosis and mildly enlarged prostate - will monitor kidney function and if needed will involve nephrology 2. Mildly elevated lipase - Unknown etiology - Patient denies any binge alcohol use, and CT scan did not reveal any evidence of gallstone disease or obstruction - Monitor lipase, LFT - as per patient's daughter, he drinks more than what he is reporting, will do CIWA 3. CAD status post stenting - Continue aspirin, beta omid and statin 4. BPH - Continue Flomax 5. Type 2 diabetes - Hold oral hypoglycemic agent - Start Novolog sliding scale - Accu-Cheks as noted 122/158/114/75 6. DVT prophylaxis -Mechanical due to recent episode of epistaxis and hematuria 7. Full code Problem List: 1. Acute kidney injury 2. CAD (coronary artery disease) 3. HTN (hypertension) Pain Ratin Pain Location: none Pain Goal: Pain 4 or less Pain Plan: tylenol Tomorrow's Labs & Rationales: bep DVT/Prophylaxis: mechanical Consulting Request: Consulting Specialty: Urology Consulting Physician: Dr. Parnell Reason for Consult: oobstructive uropathy
[2016-08-04 14:53] VITALS: BP 142/84; BP 148/76; BP 96/54
--- NOTE | 2016-08-04 16:54 | NUR ---
CALLED INTO ROOM AT THIS TIME BY PT C/O BLADDER/ LOWER ABD PRESSURE/PAIN. WATSON CONTINUES TO DRAIN LIGHT PINK URINE. NO CLOTS VISIBLE. BLADDER SCANNED FOR 0-12 ML. +BS +FLATUS. STATING HE FEELS NAUSEOUS AND DOESNT WANT TO EAT AT THIS TIME. CALL PLACED TO FASHION ADVISER AWAITING RETURN CALL.
[2016-08-04 22:28] VITALS: BP 140/60
[2016-08-05 06:00] VITALS: BP 100/60
[2016-08-05 07:00] VITALS: BP 100/60
--- NOTE | 2016-08-05 07:39 | PN- Housestaff ---
Subjective Follow-up For: AK I secondary to obstructive uropathy Complaints: no complaints Subjective: Patient is comfortably sitting in bed. Denies any abdominal pain, nausea, vomiting, chest pain, dizziness, lightheadedness, palpitation, shortness of breath. He still have pinkish hematuria noted in his Sanchez. Review of Systems Constitutional: Reports: see HPI. Objective Last 24 Hrs of Vital Signs/I&O Vital Signs Date Time Temp Pulse Resp B/P Pulse O2 O2 Flow FiO2 Ox Delivery Rate 08/05 926 80 130/70 08/05 0927 80 130/70 08/05 08 98.2 78 20 100/60 08/05 0700 98.2 78 20 100/60 93 Room Air 08/05 0600 98.2 78 20 100/60 08/04 2228 98.2 68 20 140/60 95 Room Air 08/04 1453 98.2 73 20 148/76 97 Intake & Output 08/05 1600 08/05 0800 08/05 0000 Intake Total 0 700 Output Total 2450 1400 Balance -2450 -700 Intake, IV 0 Intake, Oral 0 700 Number 0 Bowel Movements Output, Urine 2450 1400 Physical Exam General Appearance: Alert, Oriented X3, Cooperative, No Acute Distress Skin: No Rashes HEENT: Atraumatic, PERRLA, EOMI, Mucous Membr. moist/pink Neck: Supple, No JVD Cardiovascular: Normal S1, Normal S2, No Murmurs Lungs: Clear to Auscultation, Normal Air Movement Abdomen: Normal Bowel Sounds, Soft, No Tenderness Neurological: Normal Speech, Normal Tone, Sensation Intact Extremities: No Edema Vascular: Normal Pulses, Pulses Symmetrical Current Medications: Current Medications Sig/Manohar Start time Last Medication Dose Route Stop Time Status Admin Acetaminophen 650 MG Q6P PRN 08/03 1615 AC 08/03 PO 1614 Allopurinol 200 MG DAILY 08/04 1000 AC 08/05 PO 0927 Amoxicillin/ 500 MG Q12 08/03 1530 AC 08/05 Clavulanate Potassium PO 0926 Atorvastatin Calcium 10 MG 1700 08/03 1700 AC 08/04 PO 1602 Bisacodyl 10 MG ONCE ONE 08/05 0830 DC 08/05 WV 08/05 0831 0928 Bisacodyl 10 MG ONCE ONE 08/04 1730 DC WV 08/04 1731 Insulin Aspart 0 TIDAC 08/03 1700 AC 08/03 SC 1713 Metoprolol Tartrate 50 MG DAILY 08/03 1306 AC 08/05 PO 0927 Ondansetron HCl 4 MG ONCE ONE 08/04 1730 DC 08/04 IV 08/04 1731 1744 Oxycodone/ 1 TAB Q6P PRN 08/03 1615 AC Acetaminophen PO Patient Medication 1 ED .STK-MED ONE 08/04 1346 DC Teaching ED 08/04 1347 Polyethylene Glycol 17 GM DAILY 08/03 1626 AC 08/05 PO 1052 Senna/Docusate Sodium 1 TAB BID 08/03 2200 AC 08/05 PO 0928 Sodium Chloride 1,000 ML Q10H 08/04 0915 DC 08/04 IV 08/04 1914 0925 Tamsulosin HCl 0.4 MG DAILY 08/03 1306 AC 08/05 PO 0927 Zolpidem Tartrate 10 MG AT BEDTIME NEED.. 08/03 1315 AC 08/04 PO 2233 Last 24 Hrs of Lab/Serg Results Last 24 Hrs of Labs/Mics: Laboratory Tests 08/05/16 0650: Anion Gap 9, Estimated GFR 25 L, BUN/Creatinine Ratio 18.4 08/04/16 1530: Anion Gap 12, Estimated GFR 20 L, BUN/Creatinine Ratio 20.7 Orders Fingersticks (last 24 hrs): Between 152 100 Assessment/Plan Assessment: This is 76 year old male with past medical history of type 2 diabetes, CAD status post stenting in 1999, remote history of nephrolithiasis, BPH, presumed diastolic heart failure, osteoarthritis was sent in by his PCP for further evaluation of worsening generalized abdominal pain and kidney function on the lab. Patient noted to have acute worsening of kidney function from creatinine being 1 in February [address] abdomen pelvis revealed markedly distended urinary bladder with evidence of bilateral hydroureteronephrosis and mildly enlarged prostate without any evidence of acute pancreatitis/ cholelithiasis or biliary obstruction. Catheter was placed in ER and 1600 mL of urine noted. Patient had total of 8 L urine output in last 24 hours 1. Acute kidney injury secondary to obstructive uropathy due to an enlarged prostate - Improving creatinine today 2.5 - Continue Sanchez, noted hematuria which was expected after a significant bladder distention which was decompressed with Sanchez - Strict SALENA's - As per urology patient needs Sanchez on discharge and has to follow-up with his primary urologist Dr. Avila as outpatient -IV hydration stop - No urologic uintervention as per Urology Dr. Parnell required now - UA noted with 5-10 WBC and small leukocyte esterase no evidence of urinary burning/pain or leukocytosis. Follow-up urine culture. Watched off antibiotics - CT scan revealed markedly distended bladder with evidence of bilateral hydronephrosis and mildly enlarged prostate -Kidney function is significantly improving with creatinine of 2.5 today, will repeat BUN and creatinine in afternoon - Expected post obstructive diuresis, will maintain fluid status 2. Mildly elevated lipase - Unknown etiology, will repeat LFT tomorrow - Patient denies any binge alcohol use, and CT scan did not reveal any evidence of gallstone disease or obstruction - as per patient's daughter, he drinks more than what he is reporting, will do CIWA, so far CIWA has been 0 3. CAD status post stenting - Continue beta omid and statin 4. Recent episode of epistaxis - Patient was evaluated by his ENT Dr. Mae and anterior nasal packing was placed after cauterizing to bleeding vessel - Nasal packing removed today without any significant bleeding - Will avoid aspirin and anticoagulation for now due to recent episode of epistaxis and hematuria - We'll stop his antibiotic 5. BPH - Continue Flomax 6. Type 2 diabetes - Hold oral hypoglycemic agent - Start Novolog sliding scale - Accu-Cheks well controlled 7. DVT prophylaxis -Mechanical 8. Full code Patient asked to follow-up with his urologist Dr. Avila on [facility] 08/09/2016 at 940am. Patient was also recommended to follow-up with his ENT physician Dr. Mae for recent episode of epistaxis. Patient was given prescription to get BMP and CBCs checked on 08/08/2016 prior to seeing his primary care Dr. Dr. Elkins on 08/09/2016. Patient asked to stop taking metformin until his kidney function improves. Problem List: 1. Acute kidney injury 2. CAD (coronary artery disease) 3. HTN (hypertension) Pain Ratin Pain Location: none Pain Goal: Pain 4 or less Pain Plan: tylenol Tomorrow's Labs & Rationales: none DVT/Prophylaxis: mechanical Consulting Request: Consulting Specialty: Urology Consulting Physician: Dr. Parnell Reason for Consult: oobstructive uropathy
[2016-08-05 08:00] VITALS: BP 100/60
--- NOTE | 2016-08-05 08:45 | Patient Discharge Instructions ---
Discharge Instructions General Discharge Information You were seen/treated for: ACUTE RENAL FAILURE DUE TO URINARY OBSTRUCTRION PRESUMABLY DUE TO BPH Watch for these problems: HEMATURIA, WORSENING RENAL FAILURE, FLANK PAIN, Special Instructions: Please follow up with Dr. Mathis on [place] 08/09/16. Please get BMP, CBC checked on 08/08/16. Please follow up with urology Dr. Avila on 08/09/16 at 940am. Continue mtz catheter until evaluated by urologist. Diet Recommended Diet: Diabetic Activity Additional ACTIVITY Info: as tolerated Acute Coronary Syndrome Inclusion Criteria At DC or during hospital stay patient has or had the following: ACS DIAGNOSIS No Discharge Core Measures Meds if any: Prescribed or Continued at Discharge Meds if any: NOT Prescribed or Continued at Discharge Congestive Heart Failure Inclusion Criteria At DC or during hospital stay patient has or had the following: CHF DIAGNOSIS No Discharge Core Measures Meds if any: Prescribed or Continued at Discharge Meds if any: NOT Prescribed or Continued at Discharge Cerebrovascular accident Inclusion Criteria At DC or during hospital stay patient has or had the following: CVA/TIA Diagnosis No Discharge Core Measures Meds if any: Prescribed or Continued at Discharge Meds if any: NOT Prescribed or Continued at Discharge Venous thromboembolism Inclusion Criteria VTE Diagnosis No VTE Type NONE VTE Confirmed by (Test) NONE Discharge Core Measures - Per Current guidelines, there needs to be overlap - treatment for the first 5 days of Warfarin therapy. - If discharged on Warfarin prior to 5 days of - overlap therapy, the patient will need to be - assessed for post discharge needs including - *Post discharge parental anticoagulation - *Warfarin and/or parental anticoagulation education - *Follow up date to check INR post discharge At least 5 days overlap therapy as Inpatient No Meds if any: Prescribed or Continued at Discharge Note: Overlap Therapy is Warfarin and Anticoagulant Meds if any: NOT Prescribed or Continued at Discharge
[2016-08-05 09:27] VITALS: BP 130/70
--- NOTE | 2016-08-05 09:34 | PN- Att Addend ---
Attending Addendum Attending Brief Note Patient reports improved symptoms General Appearance: Alert, No Acute Distress Skin: Grossly normal HEENT: PEERLA Neck: Supple, No JVD Cardiovascular: Regular Rate, Normal S1, Normal S2, No Murmurs Lungs: Clear to Auscultation, Normal Air Movement Abdomen: Normal Bowel Sounds, Soft, No Tenderness Neurological: Normal Speech, Strength at 5/5 X4 Ext, Cranial Nerves 3-12 NL, Reflexes 2+ Extremities: No Clubbing, No Cyanosis, No Edema Vascular: Normal Pulses Assessment 76-year-old with history of diabetes, coronary artery disease, BPH presenting with worsening kidney function and abdominal discomfort. CAT scan suggested significant bladder distention and bilateral hydronephrosis. Mtz was placed and his kidney function is improving. Prior to admission he had a nasal packing for epistaxis that has resolved. Plan Repeat BMP in 2 days Stable for discharge on mtz catheter Outpatient follow-up with urology Hold metformin upon discharge Current Medications Sig/Manohar Start time Last Medication Dose Route Stop Time Status Admin Acetaminophen 650 MG Q6P PRN 08/03 1615 AC 08/03 PO 1614 Allopurinol 200 MG DAILY 08/04 1000 AC 08/05 PO 0927 Amoxicillin/ 500 MG Q12 08/03 1530 AC 08/05 Clavulanate Potassium PO 0926 Atorvastatin Calcium 10 MG 1700 08/03 1700 AC 08/04 PO 1602 Bisacodyl 10 MG ONCE ONE 08/05 0830 DC 08/05 WI 08/05 0831 0928 Bisacodyl 10 MG ONCE ONE 08/04 1730 DC WI 08/04 1731 Insulin Aspart 0 TIDAC 08/03 1700 AC 08/03 SC 1713 Metoprolol Tartrate 50 MG DAILY 08/03 1306 AC 08/05 PO 0927 Ondansetron HCl 4 MG ONCE ONE 08/04 1730 DC 08/04 IV 08/04 1731 1744 Oxycodone/ 1 TAB Q6P PRN 08/03 1615 AC Acetaminophen PO Patient Medication 1 ED .STK-MED ONE 08/04 1346 DC Teaching ED 08/04 1347 Polyethylene Glycol 17 GM DAILY 08/03 1626 AC 08/04 PO 0927 Senna/Docusate Sodium 1 TAB BID 08/03 2200 AC 08/05 PO 0928 Sodium Chloride 1,000 ML Q10H 08/04 0915 DC 08/04 IV 08/04 Tamsulosin HCl 0.4 MG DAILY 08/03 1306 AC 08/05 PO 926 Zolpidem Tartrate 10 MG AT BEDTIME NEED.. 08/03 1315 AC 08/04 PO 2233 Laboratory Tests 08/05 08/04 0650 1530 Chemistry Sodium (137 - 145 mmol/L) 140 139 Potassium (3.5 - 5.1 mmol/L) 3.6 4.4 Chloride (98 - 107 mmol/L) 102 101 Carbon Dioxide (22 - 30 mmol/L) 29 26 Anion Gap (5 - 16) 9 12 BUN (9 - 20 mg/dL) 46 H 62 H Creatinine (0.7 - 1.2 mg/dL) 2.5 H 3.0 H Estimated GFR (>60 ml/min) 25 L 20 L BUN/Creatinine Ratio (7 - 25 %) 18.4 20.7 Vital Signs Date Time Temp Pulse Resp B/P Pulse O2 O2 Flow FiO2 Ox Delivery Rate 08/05 926 80 130/70 08/05 926 80 130/70 08/05 0800 98.2 78 20 100/60 08/05 0700 98.2 78 20 100/60 93 Room Air 08/05 0600 98.2 78 20 100/60 08/04 2228 98.2 68 20 140/60 95 Room Air 08/04 1453 98.2 73 20 148/76 97
[2016-08-05] MEDS ORDERED: Zyloprim PO (11:46)
[2016-08-05] MEDS ORDERED: MIRALAX119 GM PO (11:46)
[2016-08-05] MEDS ORDERED: SENNA PLUS TAB1 EACH PO (11:48)
--- NOTE | 2016-08-24 14:37 | Discharge Summary ---
Visit Information Visit Dates Admission Date: 08/03/16 Discharge Date: 08/05/16 Hospital Course Course Attending Physician: REBECCA LEAL MD Primary Care Physician: WANDA CHILDRESS,CHARLIE Santana Consulting Request: Consulting Specialty: Urology Consulting Physician: Dr. Parnell Reason for Consult: oobstructive uropathy Hospital Course: 76 year old male with past medical history of type 2 diabetes, CAD status post stenting in 1999, remote history of nephrolithiasis, BPH, presumed diastolic heart failure, osteoarthritis was sent in by Dr Mathis for further evaluation of worsening generalized abdominal pain and kidney function on the lab. Patient noted to have acute worsening of kidney function from creatinine being 1 in February [address] abdomen pelvis revealed markedly distended urinary bladder with evidence of bilateral hydroureteronephrosis and mildly enlarged prostate without any evidence of acute pancreatitis/cholelithiasis or biliary obstruction. Catheter was placed in ER and 1600 mL of urine noted. 1. Acute kidney injury secondary to obstructive uropathy due to an enlarged prostate Patient had total of 8 L urine output in first 24 hours. Sanchez was placed and after aggressive fluid resuscitation creatinine improved to 2.5 on the day of discharge. As per urology patient Sanchez was aintained on discharge and to follow with his primary urologist Dr. Avila as outpatient 2. Recent episode of epistaxis Patient was evaluated by his ENT Dr. Mae and anterior nasal packing was placed after cauterizing to bleeding vessel. Nasal packing removed on admission without any significant bleeding. patient did not receive any further antibiotics and will follow ENT as outpatient. 3. Type 2 diabetes Metformin was held upon discharge for acute kidney injury which will be followed as outpatient. He will repeat a blood work in 2 days from discharge. Allergies: Coded Allergies: No Known Allergies (08/03/16) Significant Procedures: CAT scan abdomen and pelvis IMPRESSION: 1. Markedly distended urinary bladder with evidence of bilateral hydroureteronephrosis and mildly enlarged prostate. 2. No CT evidence of any acute pancreatitis, cholelithiasis or biliary obstruction is present. Evaluation is technically limited due to lack of IV contrast. 3. 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 Marked diffuse osteopenia. Disposition Summary Disposition Principal Diagnosis: bilateral hydronephrosis Acute kidney injry BPH Additional Diagnosis: epistaxis Diabetes Discharge Disposition: home or self care Discharge Instructions General Discharge Information Code Status: Full Code Patient's Diet: diabetic diet Patient's Activity: no restrictions Follow-Up Instructions/Appts: follow-up with urology Dr. Avila and at our office within week of discharge. Medications at Discharge Discharge Medications: Stop taking the following medications: Aspirin (Lo-Dose Aspirin EC) 81 MG TABLET.DR ORAL DAILY Amoxicillin (Amoxicillin) 875 MG TABLET ORAL TWICE DAILY Qty = 20 Potassium Chloride (Potassium Chloride) 10 MEQ TAB.ER.PRT ORAL DAILY Days = 30 Allopurinol (Allopurinol) 300 MG TABLET ORAL DAILY Qty = 30 Metformin HCl (Metformin HCl) 1,000 MG TABLET ORAL TWICE DAILY Qty = 60 Continue taking these medications: Pioglitazone HCl (Pioglitazone HCl) 15 MG TABLET 1 Tablet ORAL DAILY Qty = 30 Comments: NOT GIVEN Metoprolol Tartrate (Metoprolol Tartrate) 50 MG TABLET 1 Tablet ORAL DAILY Qty = 30 Comments: Last Taken: 08/05/16 Time: 09:30 AM Tamsulosin HCl (Tamsulosin HCl) 0.4 MG CAP.ER.24H 1 Capsule ORAL DAILY Qty = 60 Comments: Last Taken: 08/05/16 Time: 09:30 AM Zolpidem Tartrate (Zolpidem Tartrate) 10 MG TABLET 1 Tablet ORAL Every night as needed as needed for SLEEP Qty = 30 Comments: Last Taken: 08/04/16 Time: 10:30 PM Atorvastatin Calcium (Atorvastatin Calcium) 10 MG TABLET 1 Tablet ORAL 5 PM Days = 30 Comments: Last Taken: 08/04/16 Time: 4:00 PM Glipizide (Glipizide) 10 MG TABLET 1 Tablet ORAL TWICE DAILY Qty = 60 Comments: NOT GIVEN Start taking the following new medications: Polyethylene Glycol 3350 (Miralax) 17 GRAM/DOSE POWDER 17 Gram ORAL DAILY as needed for CONSTIPATION Qty = 15 No Refills Comments: Last Taken: 08/05/16 Time: 11:00 AM Sennosides/Docusate Sodium (Senna Plus Tablet) 8.6 MG-50 MG TABLET 1 Tablet ORAL TWICE DAILY as needed for CONSTIPATION Qty = 30 No Refills Comments: Last Taken: 08/05/16 Time: 09:30 AM [Zyloprim] 200 Milligram ORAL DAILY Qty = 30 No Refills Comments: Last Taken: 08/05/16 Time: 09:30 AM Copies To: SABINA CHILDRESS,WESLEY H. Attending MD Review Statement Documenting Attending: MEL CHILDRESS,SUCHITH
== END 2016-08-05 14:05 | disposition home health service (06) | DRG 683 ==
LOC: ENRESERVTM → ENRESERVDT → ERH 09:21 → ERHI 12:04 → 2NA 12:04 → ENPENDDIS 12:04 → 2NA 15:52
PROVIDERS: Internal Medicine; Physician Assistant; ADMIT Internal Medicine
DX: N17.9 Acute kidney failure, unspecified (principal); I50.32 Chronic diastolic (congestive) heart failure; I11.0 Hypertensive heart disease with heart failure; E11.9 Type 2 diabetes mellitus without complications; N13.8 Other obstructive and reflux uropathy; N40.1 Benign prostatic hyperplasia with lower urinary tract symptoms; M19.90 Unspecified osteoarthritis, unspecified site
CPT/HCPCS: 2NASP; 84133; 84156; 84300; 36415; 74176; 81001; 82436; 82570; 87086; 93005; 93010; J1644; J2405; J3490; J7042